=== PATIENT | female | born 1990 | race Caucasian/White ===

== ENCOUNTER 2017-07-17 12:22 | Emergency (ER) | payer OTHER ==
[~2017-07-17] VITALS: Ht 167.6 cm; Wt 87.0 kg
[~2017-07-17 12:22] MED LIST: ALBUTEROL17 G1 IH; CHROMAGEN,1 CAPSULE PO; EXCEDRIN MIGRA1 EAC3 PO; Motrin PO; NOHOMEMEDS; ORTHO TRI-CYCL1 EACH PO; PRENATAL1 EACH PO
[2017-07-17] MEDS ORDERED: SUDAFED PE PRE1 EAC2 PO (13:36)
[2017-07-17] MEDS ORDERED: XYLOCAINE VISC100 ML PO (13:36)
[2017-07-17 13:52] VITALS: BP 133/99
== END 2017-07-17 13:54 | disposition home or self-care (01) ==
LOC: RME 12:22 → EME 12:22 → RME 13:54
DX: H92.02 Otalgia, left ear (principal); R68.84 Jaw pain; J45.909 Unspecified asthma, uncomplicated; F31.9 Bipolar disorder, unspecified; F32.9 Major depressive disorder, single episode, unspecified; G43.909 Migraine, unspecified, not intractable, without status migrainosus; F17.200 Nicotine dependence, unspecified, uncomplicated; Z88.2 Allergy status to sulfonamides
CPT/HCPCS: 99281; 99283

== ENCOUNTER 2017-07-18 10:00 | Emergency (ER) | payer OTHER ==
[~2017-07-18] VITALS: Ht 154.9 cm; Wt 86.0 kg
[~2017-07-18 10:00] MED LIST changes: +SUDAFED PE PRE1 EAC2 PO; +XYLOCAINE VISC100 ML PO
[2017-07-18 11:40] VITALS: BP 131/88
== END 2017-07-18 12:02 | disposition home or self-care (01) ==
LOC: EME 10:00
DX: H92.02 Otalgia, left ear (principal); F17.200 Nicotine dependence, unspecified, uncomplicated; Z88.2 Allergy status to sulfonamides
CPT/HCPCS: 99281; 99284